=== PATIENT | female | born 1945 | race Caucasian/White ===

== ENCOUNTER 2024-02-03 18:24 | Emergency (ER) | payer OTHER, SELFPAY ==
[2024-02-03 18:25] VITALS: BP 200/94
--- NOTE | 2024-02-03 20:01 | ED.GENMED ---
History of Present Illness
General
Chief Complaint: DVT/Possible Blood Clot
Source: patient
Exam Limitations: none
Time Seen by Provider: 02/03/24 18:54
Nursing documentation reviewed up to this point in time: agreed with
Travel History
Have you had any contact with someone who has COVID-19?: No
Do you have any symptoms of coronavirus? Fever > 100 degrees, chills, cough, shortness of breath, sore throat, loss of taste or smell, muscle aches, or headache?: No
History of Present Illness
History of Present Illness:
78-year-old female with past medical history of COPD presenting to the emergency department today with concerns of a pinch like sensation to the right calf earlier today noticed a bruise she came to the ER to assess for DVT has mild pain to the area
was able to ambulate denies numbness weakness or additional concerns. No direct trauma to the area
Review of Systems
Review of Systems
Allergies reviewed?: Yes
All Other Systems: ROS reviewed and negative except as documented in HPI and ROS
Phy Exam
Physical Exam
Physical Exam:
GENERAL: Alert , in no apparent distress
EYE: pupils equal and reactive
NECK: Supple, no significant adenopathy.
ENT: o/p clr, mmm.
CARDIAC: Regular rate and rhythm .
LUNGS: Clear breath sounds bilaterally, no acute respiratory distress, no wheezes/rales/rhonchi
ABDOMEN: Soft, without focal tenderness, no r/g, no cvat
NEUROLOGICAL: Alert and oriented, no focal neuro deficits
SKIN: Warm and dry, skin intact.
MUSCULOSKELETAL: Roughly 5 cm diameter bruise to the right calf posteriorly mild tenderness to palpation nonpulsatile good range of motion and strength of the knee and ankle. Normal distal pulses no edema, well perfused.
PSYCH: Normal and appropriate interaction.
Course
Orders/Labs/Results
Orders:
Orders
02/03/24 18:55
Venous Doppler Lwr Ext Rt [US Periph Venous LOWER Ext RT] Urgent
Comment:
Reason For Exam: leg pain
Vital Signs
Initial and Last Documented VS:
Initial Vital Signs
Temp Pulse Resp BP Pulse Ox
98.3 F 89 18 200/94 94
02/03/24 18:25 02/03/24 18:25 02/03/24 18:25 02/03/24 18:25 02/03/24 18:25
Last Documented Vital Signs
Temp Pulse Resp BP Pulse Ox
98.3 F 89 18 200/94 94
02/03/24 18:25 02/03/24 18:25 02/03/24 18:25 02/03/24 18:25 02/03/24 18:25
MDM/Problems Addressed
MDM/Problems Addressed:
78-year-old female presenting to the emergency department today with concerns of discomfort to her calf after feeling a pinching sensation and noticing bruising. She otherwise is well-appearing no acute distress ultrasound did not show any clot no
emergent findings on exam other than a bruise advised for close outpatient follow-up return precautions given.
*Critical Care Note
Total Time (30-74mins, 75-104mins- exclusive of procedures): Not Applicable
ED Attending Note
-
Portions of this chart may have been created with voice recognition software.� Occasional wrong word or��sound alike� substitutions may have occurred due to the inherent limitations of voice recognition software.
Discharge Plan
Departure
Patient Disposition: Home (Routine Discharge)
Date of Disposition: 02/03/24
Time of Disposition: 20:03
Patient with high blood pressure during this ER visit?: Yes
Condition: Good
Covid-19: Not Applicable
Discharge Problem:
Contusion
Instructions: BLOOD PRESSURE, Contusion
Activity Restrictions/Additional Instructions:
You came to the emergency department today with concerns of a bruise. You are found to have a normal ultrasound here. Your blood pressure was. Please monitor this at home. Return to the emergency department for any worsening, new or concerning
symptoms.
Interventions
Interventions:
*ED COVID-19 Vaccine History Last Done: 02/03/24 18:25
Discharge Date and Time
Print Language: AZERI
== END 2024-02-03 20:16 | disposition home or self-care (01) ==
LOC: EMR 18:24
PROVIDERS: EMERGENCY PHYSICIAN Emergency Medicine; FAMILY PHYSICIAN Student in an Organized Health Care Education/Training Program
DX: S80.11XA Contusion of right lower leg, initial encounter (principal); X58.XXXA Exposure to other specified factors, initial encounter; J44.9 Chronic obstructive pulmonary disease, unspecified
CPT/HCPCS: 99284; 93971

== ENCOUNTER 2024-10-14 06:26 | Day surgery (SDC) | payer OTHER, SELFPAY ==
[2024-10-02 09:11] LABS: Hematocrit 39.8 % (37.0-47.0); Hemoglobin 12.9 g/dL (12.0-16.0); Mean Corp Hgb Conc. 32.4 g/dL (33.0-37.0); Mean Corpuscular Hgb 30.6 pg (27.0-31.0); Mean Corpuscular Volume 94.5 fL (81.0-99.0); Mean Platelet Volume 10.8 fL (7.4-10.4); Platelet Count 244 10^3/uL (130-400); Red Blood Cell Count 4.21 10^6/uL (4.20-5.40); Red Cell Dist. Width 13.2 % (11.5-14.5)
[2024-10-02 09:44] LABS: Blood Urea Nitrogen 20 mg/dl (7-17); Calcium 9.3 mg/dl (8.4-10.2); Carbon Dioxide 25 mmol/L (22-30); Chloride 106 mmol/L (98-107); Glucose 88 mg/dl (70-99); Potassium 4.4 mmol/L (3.5-5.1); Sodium 142 mmol/L (135-145); eGFR 57.31
--- NOTE | 2024-10-02 14:12 | PTCARENOTE ---
Patients 10/02 ECG abnormal- reviewed by Dr. Millard- no additional interventions indicated
[2024-10-02 14:22] VITALS: BMI 20.4
[2024-10-14] VITALS (9 sets, daily range): BP systolic 127–155; BP diastolic 54–82; BMI 20.4
--- NOTE | 2024-10-14 08:19 | HP.FOC2 ---
Focused History & Physical
Chief Complaint
HPI:
Chief Complaint: Right inguinal hernia
HPI / Indication for Planned Procedure: Patient is a 79-year-old female with a past abdominal surgical history only notable for open left inguinal herniorrhaphy in 1997 from which she has recovered well. She has been following swelling in the right
inguinal region. It is present upon standing or with exertional activities with occasional discomfort. Outpatient evaluation confirmed the presence of a readily apparent and reducible right inguinal hernia. Patient presents today for scheduled
operative correction
Relevant Past Medical History: COPD or Pulmonary Disease, Hypertension and Other (Giant cell arteritis, previous history EtOH)
Relevant Social History: Negative
Relevant Family History: Negative
Relevant Past Surgical History: Positive for (Cataracts, left inguinal hernia repair)
Review of Systems
Review of Pertinent Systems: All Systems Negative
Medication
See Medication form for detailed medications: Yes
Medication List (including Herbals & OTC):
albuterol sulfate 90 mcg/actuation aerosol inhaler 2 puff inhalation 6XD PRN COPD 10/07/24
budesonide-formoterol HFA 160 mcg-4.5 mcg/actuation aerosol inhaler (Symbicort) 2 puff inhalation DAILY 10/07/24
cholecalciferol (vitamin D3) 25 mcg (1,000 unit) tablet (Vitamin D3) 25 mcg PO DAILY 10/07/24
lisinopril 10 mg tablet 10 mg PO DAILY 10/07/24
tiotropium bromide 2.5 mcg/actuation mist for inhalation (Spiriva Respimat) 2 puff inhalation DAILY 10/07/24
Medications Reviewed: Yes
Allergies and Reactions
Patient has Allergies: No
Noted Allergies and Reactions:
Allergy/AdvReac Type Severity Reaction Status Date / Time
No Known Allergies Allergy Unverified 10/07/24 09:05
Pertinent Physical Exam
All Other Systems: Negative
Head/Neck: Normal
Lungs: Normal
Heart: Normal
Abdomen: Other (Reducible RIH)
Extremities: Normal
Neurological: Normal
Diagnosis / Assessment
79-year-old female presenting for operative correction symptomatic right inguinal hernia
Plan / Procedure
Laparoscopic TEP repair right inguinal hernia with mesh
Anesthesia/Sedation to be done by Anesthesia Provider: Yes
--- NOTE | 2024-10-14 08:22 | W.SUR.PREOP ---
Pre-Operative Surgical Note
-
I have examined this patient prior to the performance of the scheduled procedure.
The patient's condition is unchanged from the time of the current History and
Physical and the patient is able to undergo the scheduled procedure.
[2024-10-14] MEDS: TYLENOL 1000 MG PO (08:29)
[2024-10-14] MEDS: NORMOSOL-R/PLASMALYTE-A 1000 IV ×2 (08:37→11:37)
--- NOTE | 2024-10-14 09:43 | W.IMMPOSTOP ---
Addendum entered and electronically signed by Kayode Mario MD 10/14/24 09:51:
#[id number]
Original Note:
Surgical Immed Post Op Note
-
Primary Surgeon: Kayode Mario MD
Assisting Surgeon: Bolivar Mullen MD PGY1
Pre-op Diagnosis: Right inguinal hernia
Post-op Diagnosis: Right inguinal hernia; indirect and direct/femoral component
Procedure Performed: Laparoscopic TEP repair right inguinal hernia mesh; 3D max large mid weight
Anesthesia Type: GETA +0.25% Marcaine with epi
Specimen / Cultures: None
Estimated Blood Loss: 4 mL
Complications: None immediate
Operative Findings: Right inguinal hernia, indirect and direct/femoral. 3D max large mid weight mesh repair secured to Jordy's ligament with 2 tacks. No peritoneal entry with dissection.
[2024-10-14] MEDS: ZOFRAN 4 MG IV (11:00)
[2024-10-14] MEDS: COMPAZINE 5 MG IV (11:54)
== END 2024-10-14 13:32 | disposition home or self-care (01) ==
LOC: SDS 06:26
PROVIDERS: ATTENDING PHYSICIAN Surgery; FAMILY PHYSICIAN Student in an Organized Health Care Education/Training Program
DX: K40.90 Unilateral inguinal hernia, without obstruction or gangrene, not specified as recurrent (principal)
CPT/HCPCS: 49650; 36415; 80048; 85027; 93005; C1781

== ENCOUNTER → 2024-12-27 09:03 | Outpatient (REF) | payer OTHER, SELFPAY | LOC: HWRAD 09:03 | PROVIDERS: ATTENDING PHYSICIAN Student in an Organized Health Care Education/Training Program | DX: J44.9 Chronic obstructive pulmonary disease, unspecified (principal); Z87.891 Personal history of nicotine dependence; Z12.2 Encounter for screening for malignant neoplasm of respiratory organs | CPT/HCPCS: 71250 ==

== ENCOUNTER 2025-03-16 14:05 | Inpatient (IN) | payer OTHER, SELFPAY ==
[2025-03-16] VITALS (8 sets, daily range): BP systolic 130–218; BP diastolic 70–107; PULSE 123; BMI 22.5
[2025-03-16 09:57] LABS: Hematocrit 40.4 % (37.0-47.0); Hemoglobin 13.3 g/dL (12.0-16.0); Mean Corp Hgb Conc. 32.9 g/dL (33.0-37.0); Mean Corpuscular Volume 94.0 fL (81.0-99.0); Nucleated Red Blood Cells % 0 %; Platelet Count 203 10^3/uL (130-400); Red Cell Dist. Width 12.8 % (11.5-14.5)
--- NOTE | 2025-03-16 09:57 | ED.GENMED ---
History of Present Illness
General
Chief Complaint: Blood Pressure Problem
Source: patient
Exam Limitations: none
Time Seen by Provider: 03/16/25 09:53
Nursing documentation reviewed up to this point in time: agreed with
History of Present Illness
History of Present Illness:
79-year-old female w h/o COPD, HTN who presents with a chief complaint of increasingly blurry vision that began yesterday, with a noticeable worsening this morning. The patient describes her arms as feeling 'tingly' at times. She reported nausea
that was more pronounced earlier but has not resulted in vomiting. The nausea tends to intensify when she is up and moving around. She experiences a mild dizziness that she describes as a light-headed or foggy sensation rather than room-spinning
vertigo, which she has had in the past. The symptoms worsen with positional changes, such as walking or standing, and she attributes the sensation to feeling as though her equilibrium is off. She denies any recent travel, recent illnesses, or
contact with sick individuals. She wears glasses specifically for reading, with a prescription of 2.50. The patient denies headaches, recent head trauma, chest pain, respiratory difficulties, abdominal pain, weakness in her extremities, and changes
in her appetite. There has been no introduction of new medications recently, and her chronic obstructive pulmonary disease causes some shortness of breath with exertion but has not changed. She is not experiencing urinary or bowel issues.
Past History
Past History
ED Past Medical History: COPD and HTN
Social History
Tobacco: Former smoker
Alcohol: Occasional
Personal: Single
Living: with family (The patient lives with her daughter, son-in-law, and their three children.)
Review of Systems
Review of Systems
Allergies reviewed?: Yes
All Other Systems: ROS reviewed and negative except as documented in HPI and ROS
Constitutional: Denies fever or fatigue
EENT: Reports other (mild blurry vision both eyes past 18 hours)
Respiratory: Denies trouble breathing
Cardiac: Denies chest pain
ABD/GI: Reports nausea (earlier, none now); Denies abdominal pain, vomiting, diarrhea or anorexia
: Denies dysuria, frequency, incontinence or difficulty voiding
Musculoskeletal: Reports no symptoms
Skin: Reports no symptoms
Neurological: Reports other (feels 'equilibrium is off' also mild pins and needles all 4 extremities); Denies dizzy, headache, weakness or numbness
Phy Exam
Physical Exam
Physical Exam:
GENERAL: No acute distress. A&Ox3.
CONSTITUTIONAL: Afebrile.
EYES: clear, conjunctivae normal, PERRL
ENMT: moist mucus membranes, Pharynx nl, TMs normal
RESPIRATORY: Regular respirations, nonlabored, lungs clear.
CARDIOVASCULAR: Regular rate and rhythm, no murmurs, no rubs.
GI: Soft, nontender, normal BS
MUSCULOSKELETAL: Moves with ease. Well perfused.
SKIN: Warm, dry, pink
PSYCH: Normal mood and affect. Well kept, interactive and appropriate
NEUROLOGIC: Awake, alert and oriented. Speech clear. Strength equal throughout. Cranial nerves II through XII intact. Nehvfa-ob-voat intact. No focal neurological deficits
Course
Orders/Labs/Results
Orders:
Orders
03/16/25 09:46
Electrocardiogram (*1) Urgent
Reason for Study: Chest Pain
EKG- Treatment ONCE
03/16/25 09:48
Complete Blood Count/With Diff Routine
Comprehensive Metabolic Panel Urgent
Prothrombin Time Urgent
Troponin I Urgent
03/16/25 10:08
CT Head W/o Iv Contrast Urgent
Comment:
Reason For Exam: disequilibrium, tingling extremities blurry vision
03/16/25 10:56
Physical Therapy Consult [Pt Eval And Treat] Urgent
Treatment: Vestibular evaluation
Activity Level: As Tolerated
03/16/25 13:10
HydrALAZINE [Apresoline] 10 mg IV NOW STA
03/16/25 13:42
Admit/Transfer Patient As Directed
Co-Sign Provider:
Level of Care: Inpatient admission
Assign to:: Telemetry
Physician / Group: seamus
Diagnosis: Acute blurry vision Dysequilibrium, asociated Nausea HTN urgency
Reason for Telemetry: CVA/TIA
Date to Stop Telemetry: 03/19/25
Time to Stop Telemetry: 11:00
Reason for Hospitalization: Acute blurry vision
Dysequilibrium, asociated Nausea
HTN urgency
Expected length of stay greater than two midnights?: Yes
ELOS- Estimated Length of Stay in days: 2
I certify the patient meets the requirements for IP care: Yes
03/16/25 13:44
Code Status As Directed
Resuscitation Status: Full Code
03/16/25 15:06
Acetaminophen [Tylenol/Feverall] 650 mg RECTAL Q4HPRN PRN
Acetaminophen [Tylenol] 650 mg PO Q4HPRN PRN
Albuterol [ProAIR HFA INHALER] 2 puff INH R Q6HPRN PRN sob
HydrALAZINE [Apresoline] 10 mg IV Q4HPRN PRN
03/16/25 15:06
Case Management Consult ONCE
Case Management Consult: Discharge Planning
Comment: stroke/tia
DIETARY IP CONSULT Routine
Reason for Consult: stroke/TIA
NEUROLOGY CONSULT Urgent
Consulting Provider: Akash Cardona
Was physician already notified: Yes
Reason for consult: Acute blurry vision Dysequilibrium, asociated Nausea HTN urgency
Heel Scourer Urgent
Glycohemoglobin (HgbA1c) Routine
MR Brain Without Contrast Routine
Comment:
Reason For Exam: stroke/TIA
Recent pill cam endoscopy?: No
Activity As Directed
Activity Level: With Assistance
NIH Stroke Scale As Directed
Directions: Per protocol
Comment: every shift and with any change in condition or mental status
Neurological Checks As Directed
Frequency: q4h
Additional Instructions:: q4h x 24h upon admission to the floor, then qshift & with any change in condition
and mental status
Patient Education As Directed
Type: Stroke education packet
Comment: provide to patient and family
Pneumatic Compression Sleeves As Directed
Type: Knee high
Vital Signs As Directed
Frequency: Per unit guidelines
Ot Eval And Treat Routine
Pt Eval And Treat Routine
Activity Level: With Assistance
Speech Therapy Eval & Treat Routine
DX Deep Vein Thrombosis Video Routine
03/17/25 06:00
Basic Metabolic Panel IN AM
Cardiovascular Evaluation IN AM
03/17/25 08:00
Aspirin Chewable [Low Strength Aspirin] 81 mg PO DAILY
Budesonide/Formoterol 160/4.5 [Symbicort 160/4.5 Mcg Inhaler] 2 puff INH R DAILY
Lisinopril [Zestril] 10 mg PO DAILY
Tiotropium [place] 2.5 Mcg [Spiriva Respimat 2.5 Mcg] 2 puff INH R DAILY
03/19/25 11:00
DC Protocol for Telemetry ONCE
Abnormal Lab Results
03/16/25
09:48
MCHC 32.9 L g/dL
(33.0-37.0)
MPV 10.6 H fL
(7.4-10.4)
Absolute Lymphs (auto) 1.1 L 10^3/uL
(1.2-3.4)
Lymphocytes % 17.3 L %
(20.5-51.1)
Chloride 112 H mmol/L
(98-107)
BUN 22 H mg/dl
(7-17)
03/16/25 09:48
03/16/25 09:48
Vital Signs
Initial and Last Documented VS:
Initial Vital Signs
Temp Pulse BP Pulse Ox
97.9 F 75 199/104 96
03/16/25 09:18 03/16/25 09:18 03/16/25 09:18 03/16/25 09:18
Last Documented Vital Signs
Temp Pulse Resp BP Pulse Ox
98.1 F 91 12 143/76 95
03/16/25 15:00 03/16/25 15:00 03/16/25 15:00 03/16/25 15:00 03/16/25 15:00
MDM/Problems Addressed
Differential Diagnosis Includes:
TIA, BPPV, hypertensive urgency, labyrinthitis, vestibular neuritis
MDM/Problems Addressed:
79-year-old female w h/o COPD, HTN who presents with a chief complaint of increasingly blurry vision that began yesterday, with a noticeable worsening this morning. The patient describes her arms as feeling 'tingly' at times. She reported nausea
that was more pronounced earlier but has not resulted in vomiting. The nausea tends to intensify when she is up and moving around. She experiences a mild dizziness that she describes as a light-headed or foggy sensation rather than room-spinning
vertigo, which she has had in the past. The symptoms worsen with positional changes, such as walking or standing, and she attributes the sensation to feeling as though her equilibrium is off. She denies any recent travel, recent illnesses, or
contact with sick individuals. She wears glasses specifically for reading, with a prescription of 2.50. The patient denies headaches, recent head trauma, chest pain, respiratory difficulties, abdominal pain, weakness in her extremities, and changes
in her appetite. There has been no introduction of new medications recently, and her chronic obstructive pulmonary disease causes some shortness of breath with exertion but has not changed. She is not experiencing urinary or bowel issues.
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
Afebrile, NAD
No focal neuro deficits
EKG: NSR
BP has improved at initial exam: 166/70
Problem List:
Acute:
- Blurry vision
- Dysequilibrium
- Nausea
Chronic:
- Chronic obstructive pulmonary disease
CBC: unremarkable.
CMP: No clinically significant abnormality
Troponin: WNL
12:[address] radiology report read:
IMPRESSION:
No acute intracranial abnormality noted.
Mild mucosal thickening of the paranasal sinuses with may represent sinusitis.
P/T in for vestibular evaluation.
PT workup negative for BPPV, etc.
1:15 PM:
BP 205/81
Patient still with mild Disequilibrium and mild blurry vision
Plan: Admit for hypertensive urgency
Hydralazine IV ordered
Plan: Admit: Hypertensive urgency
Hospitalist notified of admission
*Pulse Oximetry
SaO2: 96
Oxygen Mode of Delivery: Room air
Patient hypoxic: no
*EKG
EKG Intrepretation Date: 03/16/25
Interpretation: normal
Heart Rate: 79
Rate: normal
Rhythm: sinus
[place]: normal axis
Interval: normal interval
QRS Pattern: normal QRS
Ischemia: no ischemia
*Critical Care Note
Total Time (30-74mins, 75-104mins- exclusive of procedures): Not Applicable
ED Attending Note
-
Portions of this chart may have been created with voice recognition software.� Occasional wrong word or��sound alike� substitutions may have occurred due to the inherent limitations of voice recognition software.
Discharge Plan
Departure
Patient Disposition: Admit
Date of Disposition: 03/16/25
Time of Disposition: 13:12
Presentation/result/management discussed w/ accepting MD/DO: Hospitalist
Condition: Fair
Discharge Problem:
Hypertensive urgency
Interventions
Interventions:
*Risk Screen - Suicide Last Done: 03/16/25 09:51
*General Assessment Last Done: 03/16/25 09:51
*ED- Fall Risk Assessment Last Done: 03/16/25 09:51
*ED COVID-19 Vaccine History Last Done: 03/16/25 15:33
*Nursing Disposition Last Done: 03/16/25 15:09
ED- Cardiac Assessment Last Done: 03/16/25 09:51
ED- Neurological Assessment Last Done: 03/16/25 09:51
ED- Pulmonary Assessment Last Done: 03/16/25 09:51
Discharge Date and Time
Discharge Date/Time: 03/16/25 15:10
[2025-03-16 10:07] LABS: INR 0.92; PT 12.6 Sec (11.4-14.6)
[2025-03-16 10:11] LABS: ALT (SGPT) 18 U/L (0-35); AST (SGOT) 20 U/L (14-36); Albumin 4.5 g/dl (3.5-5.0); Alkaline Phosphatase 91 U/L (38-126); Blood Urea Nitrogen 22 mg/dl (7-17); Calcium 9.6 mg/dl (8.4-10.2); Carbon Dioxide 24 mmol/L (22-30); Chloride 112 mmol/L (98-107); Estimated Creatinine Clearance 34 ml/min; Glucose 96 mg/dl (70-99); Potassium 4.8 mmol/L (3.5-5.1); Sodium 143 mmol/L (135-145); Total Protein 7.3 g/dl (6.3-8.2); eGFR 57.31
[2025-03-16 10:21] LABS: Troponin I < 0.012 ng/ml
[2025-03-16] MEDS: APRESOLINE 10 MG IV (13:23)
--- NOTE | 2025-03-16 13:26 | HPS.HSE ---
Family Physician
-
Family Physician: Aayush Hinds, DO
Chief Complaint
-
Acute blurry vision
Dysequilibrium, asociated Nausea
History of Present Illness
HPI
79F HX COPD, HTN seen at ER:
- increasingly blurry vision that began yesterday, with a noticeable worsening this morning.
- wears glasses specifically for reading, with a prescription of 2.50.
- arms as feeling 'tingly' at times.
- reported nausea that was more pronounced earlier but has not resulted in vomiting. The nausea tends to intensify when she is up and moving around.
- experiences a mild dizziness that she describes as a light-headed or foggy sensation rather than room-spinning vertigo, which she has had in the past.
- The symptoms worsen with positional changes, such as walking or standing, and she attributes the sensation to feeling as though her equilibrium is off.
- denies any recent travel, recent illnesses, or contact with sick individuals.
- denies headaches, recent head trauma, chest pain, respiratory difficulties
- denies weakness in her extremities
- no introduction of new medications recently,
Medical History
Past Medical History
Past Medical History: Reports COPD and HTN
Past Surgical History: Reports Other
Social History
Tobacco: Non-smoker
Alcohol: None
Family History
Family History: Not pertinent
Allergies / Home Medications
Allergies reflects when Allergies were last updated in [employer].
Home Medications with original date entered in [employer]
Allergy/Medication List:
Allergies
Allergy/AdvReac Type Severity Reaction Status Date / Time
No Known Allergies Allergy Verified 03/16/25 09:18
Home Medications
albuterol sulfate 90 mcg/actuation aerosol inhaler 2 puff inhalation R Q6HPRN PRN sob 10/07/24
budesonide-formoterol HFA 160 mcg-4.5 mcg/actuation aerosol inhaler (Symbicort) 2 puff inhalation R DAILY 10/07/24
cholecalciferol (vitamin D3) 25 mcg (1,000 unit) tablet (Vitamin D3) 25 mcg PO DAILY 10/07/24
tiotropium bromide 2.5 mcg/actuation mist for inhalation (Spiriva Respimat) 2 puff inhalation R DAILY 10/07/24
lisinopril 20 mg tablet 10 mg PO DAILY 03/16/25
naproxen sodium 220 mg tablet (Aleve) 440 mg PO DAILYPRN PRN mild pain 03/16/25
Review of Systems
-
Constitutional: Reports No Symptoms
EENT: Reports No Symptoms
Respiratory: Reports No Symptoms
Cardiac: Reports No Symptoms
Abdomen/GI: Reports No Symptoms
: Reports No Symptoms
Musculoskeletal: Reports No Symptoms
Skin: Reports No Symptoms
Neurological: Reports Dizzy
Endocrine: Reports No Symptoms
Hematologic/Lymphatic: Reports No Symptoms
Psych: Reports No Symptoms
Physical Exam
Vital Signs
Vital Signs
Temp Pulse Resp BP Pulse Ox
97.9 F 77 14 166/70 96
03/16/25 09:22 03/16/25 10:00 03/16/25 10:00 03/16/25 10:00 03/16/25 10:00
Physical Exam
General: Well Developed, Well Nourished and No Apparent Distress
HEENT: NormoCephalic, Moist mucous membranes and Atraumatic
Respiratory: Clear
Cardiac: S1/S2 and Regular Rhythm; No Murmur or Rub
GI: Soft, Non Tender, Non Distended and Normal Bowel Sounds; No Organomegaly
Rectal: Deferred by Provider
Musculoskeletal: No Clubbing, No Cyanosis and No Edema
Skin: No Rash
Neuro: AO x 3, No Motor Deficits and Nonfocal/grossly intact
Laboratory Results
-
03/16/25 09:48
03/16/25 09:48
Laboratory Results
PT 12.6 Sec (11.4-14.6) 03/16/25 09:48
INR 0.92 03/16/25 09:48
Total Bilirubin 0.5 mg/dl (0.2-1.3) 03/16/25 09:48
AST 20 U/L (14-36) 03/16/25 09:48
ALT 18 U/L (0-35) 03/16/25 09:48
Alkaline Phosphatase 91 U/L (38-126) 03/16/25 09:48
Troponin I < 0.012 ng/ml 03/16/25 09:48
Data Reviewed
-
CT Scan: Report Reviewed by me
Lab Data: Labs Reviewed by me
Impression/Plan
-
Selected Entries
03/16/25
09:18 03/16/25
09:22 03/16/25
09:44
Temp 97.9 F
Pulse 75
Blood pressure 199/104 218/107 156/80
SaO2 96
Oxygen Mode of Delivery Room air
HCT
- No acute intracranial abnormality noted.
- Mild mucosal thickening of the paranasal sinuses with may represent sinusitis.
- NO PRIOR hospitalist admission:
ASSESSMENT & PLAN
Pending Rx reconciliation
Acute blurry vision
Dysequilibrium, associated Nausea
HTN urgency - presumed symptomatic: NEG HCT for acute pathology
labile BP control
Bn HTN
- fall precaution
- IV Hydralazine PRN for SBP > 165, DBP > 110
- empiric baby ASA daily
- cont. PO Lisinopril
- Observe BP
- Neuro consulted - defer for further imaging or what not
CKD3a - baseline Cr 1.0, eGFR 57
- stable
- observe Cr
- cont ACEI
HX COPD
- Pending Rx reconciliation
DVT Px: SCD
Full code
IP TLM
--- NOTE | 2025-03-16 17:14 | CON.NEURO ---
Neuro Assessment/Plan
Assessment
head CT imgs reviewed, mild atrophy and microvascular changes
79 year old woman with hypertensive urgency much improved.
Exam subtle right skew deviation, loss of dominance probably represents TIA if they are gone tomorrow; or could represent stroke of unknown chronicity.
ASA 81, 21 days of Plavix, Lipitor 40 for now
check MRI brain, mra head/neck
Consultation
Order
Date of Consultation: 03/16/25
Requesting Provider:
Reason for Consult:
Subjective/Objective
Subjective Data
Date of Service: March 16, 2025
from h&p:
79F HX COPD, HTN seen at ER:
- increasingly blurry vision that began yesterday, with a noticeable worsening this morning.
- wears glasses specifically for reading, with a prescription of 2.50.
- arms as feeling 'tingly' at times.
- reported nausea that was more pronounced earlier but has not resulted in vomiting. The nausea tends to intensify when she is up and moving around.
- experiences a mild dizziness that she describes as a light-headed or foggy sensation rather than room-spinning vertigo, which she has had in the past.
- The symptoms worsen with positional changes, such as walking or standing, and she attributes the sensation to feeling as though her equilibrium is off.
- denies any recent travel, recent illnesses, or contact with sick individuals.
- denies headaches, recent head trauma, chest pain, respiratory difficulties
- denies weakness in her extremities
- no introduction of new medications recently,
her blood pressure has come down, and her dizziness and blurry vision are much improved but not resolved. no h/o stroke.
Objective Data
Vital Signs
Temp Pulse Resp BP Pulse Ox
36.7 C 91 12 143/76 95
03/16/25 15:00 03/16/25 15:00 03/16/25 15:00 03/16/25 15:00 03/16/25 15:00
Lab Results
03/16/25 09:48
03/16/25 09:48
PT 12.6 Sec (11.4-14.6) 03/16/25 09:48
INR 0.92 03/16/25 09:48
Sodium 143 mmol/L (135-145) 03/16/25 09:48
Potassium 4.8 mmol/L (3.5-5.1) 03/16/25 09:48
BUN 22 mg/dl (7-17) H 03/16/25 09:48
Glucose 96 mg/dl (70-99) 03/16/25 09:48
Calcium 9.6 mg/dl (8.4-10.2) 03/16/25 09:48
Patient Allergies
No Known Allergies Allergy (Verified 03/16/25 09:18)
Physical Exam
-
AAOx3, speech clear
VFF, EOMI, a few beats non sustained nystagmus subtle skew deviation OD with cover/uncover
loss of dominance (right arm fixation)
sensation intact to touch/pin
Medications
-
Active Medications
Generic Name Dose Route Start Last Admin
Trade Name Freq PRN Reason Stop Dose Admin
Acetaminophen 650 mg 03/16/25 15:06
Acetaminophen 650 Mg Rectal Suppository RECTAL 04/13/25 15:05
Q4HPRN PRN
DAUGHERTY, mild pain, or temp >100.4F
Acetaminophen 650 mg 03/16/25 15:06
Acetaminophen 325 Mg Tablet PO 04/13/25 15:05
Q4HPRN PRN
DAUGHERTY, mild pain, or temp >100.4F
Albuterol 2 puff 03/16/25 15:06
Albuterol Hfa [90 Mcg/Dose] Inhaler INH
R Q6HPRN PRN
sob
Protocol
Aspirin 81 mg 03/17/25 08:00
Aspirin 81 Mg Chewable Tablet PO 04/14/25 07:59
DAILY TR
Budesonide/Formoterol Fumarate 2 puff 03/17/25 08:00
Symbicort Inhaler 160/4.5 INH 04/14/25 07:59
R DAILY TR
Protocol
Hydralazine HCl 10 mg 03/16/25 15:06
Hydralazine 20 Mg/Ml Vial IV 04/13/25 15:05
Q4HPRN PRN
SBP > 165, DBP > 110
Lisinopril 10 mg 03/17/25 08:00
Lisinopril 10 Mg Tablet PO 04/14/25 07:59
DAILY TR
Sodium Chloride 0 flush 03/16/25 16:00
Sodium Chloride 0.9% (Flush) Syringe IV 04/13/25 15:59
PER PROTOCOL TR
Tiotropium [place] 2 puff 03/17/25 08:00
Tiotropium (Spiriva Respimat) 2.5 Mcg Inhaler INH 04/14/25 07:59
R DAILY TR
Protocol
Home Medications
�Medication �Instructions �Recorded
albuterol sulfate 90 mcg/actuation 2 puff inhalation R Q6HPRN PRN sob 10/07/24
aerosol inhaler
budesonide-formoterol HFA 160 2 puff inhalation R DAILY 10/07/24
mcg-4.5 mcg/actuation aerosol
inhaler (Symbicort)
cholecalciferol (vitamin D3) 25 25 mcg PO DAILY 10/07/24
mcg (1,000 unit) tablet (Vitamin
D3)
tiotropium bromide 2.5 2 puff inhalation R DAILY 10/07/24
mcg/actuation mist for inhalation
(Spiriva Respimat)
lisinopril 20 mg tablet 10 mg PO DAILY 03/16/25
naproxen sodium 220 mg tablet 440 mg PO DAILYPRN PRN mild pain 03/16/25
(Tabitha)
[2025-03-16] MEDS: PLAVIX 300 MG PO (18:03)
[2025-03-16] MEDS: ASPIRIN ENTERIC COATED 325 MG PO (18:03)
[2025-03-16] MEDS: TYLENOL 650 MG PO (21:57)
[2025-03-17] VITALS (7 sets, daily range): BP systolic 113–151; BP diastolic 66–80; PULSE 86–89; O2SAT 94–97
[2025-03-17 07:20] LABS: Blood Urea Nitrogen 21 mg/dl (7-17); Calcium 9.3 mg/dl (8.4-10.2); Carbon Dioxide 22 mmol/L (22-30); Chloride 112 mmol/L (98-107); Estimated Creatinine Clearance 31 ml/min; Glucose 87 mg/dl (70-99); HDL Cholesterol 66 mg/dl; LDL Cholesterol, Calculated 109 mg/dl; Potassium 4.6 mmol/L (3.5-5.1); Sodium 141 mmol/L (135-145); Very Low Density Lipoprotein 14 mg/dl (0-30); eGFR 51.11
[2025-03-17] MEDS: SYMBICORT 160/4.5 MCG INHALER 2 PUFF INH (07:27)
[2025-03-17] MEDS: SPIRIVA RESPIMAT 2.5 MCG 2 PUFF INH (07:27)
[2025-03-17] MEDS: LOW STRENGTH ASPIRIN PO (08:55)
[2025-03-17] MEDS: PLAVIX 75 MG PO (08:56)
[2025-03-17] MEDS: ASPIR LOW (ENTERIC COATED) 81 MG PO (08:56)
--- NOTE | 2025-03-17 08:58 | W.PN.HOSP.TC ---
Today's Communication/Plan
-
f/w neurology recommendations
MRI brain
control BP
c/w aspirin and Plavix
Echo of heart
Assessment / Plan
Assessment / Plan
Physical Exam
General: Well Developed, Well Nourished, No Apparent Distress and Morbidly Obese
HEENT: Normocephalic, Moist mucous membranes and Atraumatic
Respiratory: Clear
Cardiac: S1/S2, + murmur
GI: Soft, Non-Tender, Non-Distended and Normal Bowel Sounds, obese.
Rectal: NO bleeding.
Musculoskeletal: No Clubbing, No Cyanosis
Neuro: AAOX 3, Followed commands, speech is fluent, no pronator drift, no tremor, Nonfocal/grossly intact
Psych: Calm
Acute blurry vision
Dysequilibrium, associated Nausea
HTN urgency - presumed symptomatic: NEG HCT for acute pathology
She reports blurred vision but no numbness or focal deficit. Nausea upon trying to read
- fall precaution
- IV Hydralazine PRN for SBP > 165, DBP > 110
- empiric baby ASA & Plavix daily
- cont. PO Lisinopril
- Observe BP
- Neuro consulted
# Heart murmur. Will order echocardiogram
CKD3a - baseline Cr 1.0, eGFR 57
- stable
- observe Cr
- cont ACEI
HX COPD
c/w inhalers.
No wheezes on exam
DVT Px: SCD
Full code
Total time spent to see the patient, examine the patient, review data and lab result, discuss treatment plan with patient, nursing staff around 55 minutes
Anticipated Discharge: 24 - 48 hours
Subjective/Interval History
-
Date of Service: March 17, 2025
Objective Data
-
Labs:
Laboratory Results
03/17/25
06:14
Sodium 141
Potassium 4.6
Chloride 112 H
Carbon Dioxide 22
BUN 21 H
Creatinine 1.1 H
Glucose 87
Calcium 9.3
Vital Signs:
Vital Signs
Temp Pulse Resp BP Pulse Ox
97.4 F 71 20 140/68 94
03/17/25 02:50 03/17/25 02:50 03/17/25 02:50 03/17/25 02:50 03/17/25 02:50
I&O
03/16/25 03/17/25 03/18/25
06:59 06:59 06:59
Intake Total 1440 / 1440
Balance 1440 / 1440
--- NOTE | 2025-03-17 09:05 | PTCARENOTE ---
Patient reports taking her own medications from home this morninmg PO lisinopril, 25mcg PO vitamin d3, and spiriva and symbicort inhalers. This RN educated patient that hospital staff will be providing her medications and she should not be
taking her medications on her own, and they should be brought home if possible. MD aware. Plavix and aspirin given as ordered.
--- NOTE | 2025-03-17 09:40 | PTOTSP ---
Dysphagia Evaluation
No signs of oral/pharyngeal dysphagia. No signs of dysarthria, verbal expressive aphasia or auditory receptive aphasia in conversation. Will complete formal testing and cognitive linguistic testing pending results of MRI of Brain.
Recommend:
1. IDDSI 7 Regular, Thin
2. Medications as best tolerated
3. General aspiration and reflux precautions
4. Formal assessment of language and cognition pending results of MRI of Brain
[2025-03-17 10:19] LABS: Glycohemoglobin (HgbA1c) 5.7 % (4.0-5.6)
[2025-03-17] MEDS: NON-FORMULARY ITEM INH ×2 (11:14)
--- NOTE | 2025-03-17 13:11 | W.PN.NEURO.1 ---
Today's Communication / Plan
-
Outpatient ophthalmologic evaluation
Presumed spontaneous improvement over time
Due to prolonged symptoms, continue with plan for patient to utilize aspirin and clopidogrel simultaneously, then discontinue clopidogrel after 21 days
Would consider discontinuance of aspirin in 6 months if patient is asymptomatic and there is no recurrence of events (September 2025)
Neuro Assessment/Plan
Assessment
head CT imgs, mild atrophy and microvascular changes
79 year old woman presenting with hypertensive encephalopathy
Acute bilateral optic dysfunction without findings by examination and being unchanged by closure of a single eye suggests that the receptive organ, the brain, may not be processing images normally. Alternatively, the possibility of retinal ischemic
injury bilaterally in the eyes cannot be eliminated by limited examination currently
Plan
Outpatient ophthalmologic evaluation
Presumed spontaneous improvement over time
Due to prolonged symptoms, continue with plan for patient to utilize aspirin and clopidogrel simultaneously, then discontinue clopidogrel after 21 days
Would consider discontinuance of aspirin in 6 months if patient is asymptomatic and there is no recurrence of events (September 2025)
We will follow as outpatient
Subjective/Objective
Subjective Data
Date of Service: March 17, 2025
No change to vision. Blurred in both eyes. No diplopia.
Objective Data
Vital Signs
Temp Pulse Resp BP Pulse Ox
36.7 C 80 18 151/77 95
03/17/25 07:00 03/17/25 07:00 03/17/25 07:00 03/17/25 07:00 03/17/25 08:00
Lab Results
03/16/25 09:48
03/17/25 06:14
PT 12.6 Sec (11.4-14.6) 03/16/25 09:48
INR 0.92 03/16/25 09:48
Sodium 141 mmol/L (135-145) 03/17/25 06:14
Potassium 4.6 mmol/L (3.5-5.1) 03/17/25 06:14
BUN 21 mg/dl (7-17) H 03/17/25 06:14
Glucose 87 mg/dl (70-99) 03/17/25 06:14
Calcium 9.3 mg/dl (8.4-10.2) 03/17/25 06:14
LDL Cholesterol, Calc 109 mg/dl 03/17/25 06:14
Patient Allergies
No Known Allergies Allergy (Verified 03/16/25 09:18)
Review of Systems
-
History Source: Patient and Family
All other systems: Reviewed and negative
EENT: Blurry Vision; Negative Tinnitis or Swallowing Difficulty
Respiratory: Negative Trouble Breathing
Cardiac: Negative Chest Pain
Musculoskeletal: Negative Neck Pain
Neuro: Negative Dizzy or Headache
Physical Exam
-
General: No Apparent Distress and Appears Stated Age
Eyes: Round OU, [place] Conjunctivae and No Ptosis
HEENT: Anicteric and Moist Mucous Membranes
Neck: Full Range of Motion
Respiratory: No Dyspnea
Cardiac: No JVD
GI: Non-distended
Skin: Unremarkable
Extremities: No Clubbing, No Cyanosis and No Edema
Psych: Intact Judgement/Insight
Extended Neurological Exam
Mood & Affect: Mood Unremarkable and Affect Unremarkable
Attention Span & Concentration: Awake, Alert, Interactive and No Difficulty with 2 Step Request
Memory: Unremarkable
Tremor: Hand Tremor Absent and Head Tremor Absent
Speech: Quality Unremarkable and Quantity Unremarkable
Cranial Nerve II: Left Eye: Pupillary Size Unremarkable and Visual Garibay Intact
Cranial Nerve II: Right Eye: Pupillary Size Unremarkable and Visual Garibay Intact
Cranial Nerves III, IV, : Extraocular Movement: Extraocular Movement Full in all Directions
Cranial Nerve VII: Facial Symmetry: Normal Facial Symmetry
Cranial Nerve VIII: Hearing: Unremarkable Hearing to Normal Conversational Volume
Cranial Nerve XI: Shoulder Shrug: Unremarkable
Muscle Strength, Overall: Full in Upper Extremities
Muscle Bulk & Tone: Bulk Unremarkable and Tone Unremarkable
Pronator Drift: No Drift in Upper Extremities
Touch Sensation: Unremarkable
Coordination: [id number] Testing Unremarkable
Data Reviewed
-
MRI Head: Report Reviewed and Image Reviewed
Labs: Report Reviewed
Reviewed with: Physician and Patient
Old Records: Summarized
Past History
Past History
ED Past Medical History: COPD and HTN
Social History
Tobacco: Former smoker
Alcohol: Occasional
Personal: Single
Living: with family (The patient lives with her daughter, son-in-law, and their three children.)
Medications
-
Medications:
Generic Name Dose Route Start Last Admin
Trade Name Freq PRN Reason Stop Dose Admin
Acetaminophen 650 mg 03/16/25 15:06
Acetaminophen 650 Mg Rectal Suppository RECTAL 04/13/25 15:05
Q4HPRN PRN
DAUGHERTY, mild pain, or temp >100.4F
Acetaminophen 650 mg 03/16/25 15:06 03/16/25 21:57
Acetaminophen 325 Mg Tablet PO 04/13/25 15:05 650 mg
Q4HPRN PRN Administration
DAUGHERTY, mild pain, or temp >100.4F
Albuterol 2 puff 03/16/25 15:06
Albuterol Hfa [90 Mcg/Dose] Inhaler INH
R Q6HPRN PRN
sob
Protocol
Aspirin 81 mg 03/17/25 08:00 03/17/25 08:55
Aspirin 81 Mg Chewable Tablet PO 04/14/25 07:59 Not Given
DAILY TR
Clopidogrel Bisulfate 75 mg 03/17/25 08:00 03/17/25 08:56
Clopidogrel 75 Mg Tablet PO 04/06/25 08:01 75 mg
DAILY TR Administration
Hydralazine HCl 10 mg 03/16/25 15:06
Hydralazine 20 Mg/Ml Vial IV 04/13/25 15:05
Q4HPRN PRN
SBP > 165, DBP > 110
Lisinopril 10 mg 03/17/25 08:00 03/17/25 08:55
Lisinopril 10 Mg Tablet PO 04/14/25 07:59 Not Given
DAILY TR
Pts Owntiotropium ( 0 unit 03/17/25 08:00 03/17/25 11:14
Spiriva Respimat) 2. INH 04/14/25 07:59 Not Given
5 Mcg Inhaler R DAILY TR
Protocol
Pts Own Symbicort 0 unit 03/17/25 08:00 03/17/25 11:14
Inhaler 160/4.5 2 INH 04/14/25 07:59 Not Given
Puffs Daily R DAILY TR
Protocol
Sodium Chloride 0 flush 03/16/25 16:00
Sodium Chloride 0.9% (Flush) Syringe IV 04/13/25 15:59
PER PROTOCOL TR
--- NOTE | 2025-03-17 14:57 | PTOTSP ---
Pt presents to OT with continued blurred vision, but vision is functional for session. Demonstrates good UB AROM, strength, sensation and coordination; cognition grossly intact; occular mobility grossly intact. Pt is currently at mod I/I level with
basic self care, transfers and functional mobility in room and bathroom without AD. Pt states she has an eye doctor appt on . No additional skilled OT indicated at this time.
[2025-03-17] MEDS: ZESTRIL 10 MG PO (20:05)
[2025-03-18 03:18] VITALS: BP 133/70
[2025-03-18 07:17] VITALS: BP 107/69
[2025-03-18] MEDS: NON-FORMULARY ITEM 2 UNIT INH ×2 (07:53)
[2025-03-18] MEDS: LOW STRENGTH ASPIRIN 81 MG PO (08:47)
[2025-03-18] MEDS: PLAVIX 75 MG PO (08:47)
[2025-03-18] MEDS: ZESTRIL PO (08:48)
[2025-03-18] MEDS: ZESTRIL 10 MG PO (08:50)
--- NOTE | 2025-03-18 09:03 | RESPNOTE ---
patient states good possibility for discharge today, patient's own inhalers returned to patient after administering morning doses.
--- NOTE | 2025-03-18 09:11 | W.PN.HOSP.TC ---
Today's Communication/Plan
-
dc
Assessment / Plan
Assessment / Plan
Physical Exam
General: Well Developed, Well Nourished, No Apparent Distress and Morbidly Obese
HEENT: Normocephalic, Moist mucous membranes and Atraumatic
Respiratory: Clear
Cardiac: S1/S2, + murmur
GI: Soft, Non-Tender, Non-Distended and Normal Bowel Sounds, obese.
Rectal: NO bleeding.
Musculoskeletal: No Clubbing, No Cyanosis
Neuro: AAOX 3, Followed commands, speech is fluent, no pronator drift, no tremor, Nonfocal/grossly intact
Psych: Calm
Acute blurry vision, seems to resolve slowly, will need to f/w OP eye doctor, she has an appointment in 2 days
Dysequilibrium, associated Nausea, seems to resolved, feeling better.
HTN urgency - presumed HTN encephalopathy
MRI studies, no acute finsings
neurology recommended dual anti-plt therapy for 21 days
LDL at 109, d/w pt, recommend to d/w PCP in OP setting
# Heart murmur. echo showed moderate TR, PASP at 40 mmHg and
will f/w PCP
CKD3a - baseline Cr 1.0, eGFR 57
- stable
- observe Cr
- cont ACEI
HX COPD
c/w inhalers.
No wheezes on exam
DVT Px: SCD
Full code
Total discharge time spent to see the patient, examine the patient, review data and lab result, discuss discharge plan with patient, family, neurology, nursing staff around 67 minutes
Anticipated Discharge: Today
Subjective/Interval History
-
Date of Service: March 18, 2025
She feels better, less blurred vision
Walked around with no dizziness
No chest pain or sob
Objective Data
-
Vital Signs:
Vital Signs
Temp Pulse Resp BP Pulse Ox
97.9 F 80 16 107/69 95
03/18/25 07:17 03/18/25 07:17 03/18/25 08:05 03/18/25 07:17 03/18/25 08:05
I&O
03/17/25 03/18/25 03/19/25
06:59 06:59 06:59
Intake Total 1440 / 1440 720 / 720
Balance 1440 / 1440 720 / 720
--- NOTE | 2025-03-18 10:32 | CM ---
Patient for d/c today, initial assessment completed. Patient seen bedside w/ daughter, Marissa. Admitted for Acute blurry vision, Dysequilibrium, associated Nausea.
Patient resides w/ her daughter, Allie, son in law and grandchildren in a 2ST[facility], no steps to enter. Patient is independent in all areas, no DME. No SNF/HC hx reported.
Address, points of contact and insurance verified
PCP: Aayush Hinds
Pharmacy: [facility] [place]
Therapy rec OP therapy, discussed w/ patient who shared she does not need therapy at this time. Patient is due to vacation next week to [place].
IMM verbally reviewed, copy provided, copy on chart
Plan: Home, no needs
--- NOTE | 2025-03-19 12:37 | W.DCSUMMARY ---
Discharge Summary
Discharge Data
Date of Admission: 03/16/25
Date of Discharge: 03/18/25
-
Pending Results: No
Hospital Course
79 years old female presented with blurred vision in both eyes with dizziness. Patient reported feeling dizzy and vertigo with nausea upon trying to focus or read. Family noticed imbalance in her gait also. Patient was evaluated by neurologist.
She did not have active signs of infection. Brain imaging studies including MRI did not show acute findings. She was noticed to have high blood pressure. She was taking lisinopril which was increased from 10 mg daily to 10 mg twice daily.
Blurred vision improved but remained present. Neurologist recommended outpatient ophthalmologic evaluation for possible hypertensive encephalopathy or possibility of retinal ischemic injury. Patient was able to ambulate independently. She denied
further nausea, dizziness or vertigo. She did not have double vision. She remained hemodynamically stable. She was noticed to have heart murmur. Echocardiogram showed normal left ventricular ejection fraction is 55-60%, moderate tricuspid
regurgitation with PASP 40 mmHg. Patient has history of COPD. She reported compliance to her inhalers with no hypoxia. Patient was advised to continue taking her medications and follow-up with primary care doctor. She was advised to continue
dual antiplatelet therapy due to prolonged symptoms she encountered. She was advised to stop Plavix after 21 days, to continue with aspirin with possibility of discontinuation if no symptoms and no recurrence of events. Patient was able to
tolerate diet. Instructions were discussed with patient and her family. She obtained an ophthalmology appointment upon discharge. She was discharged in a stable condition.
Discharge Plan
-
Patient Disposition: Home (Routine Discharge)
Discharge Diagnosis/Procedures: -Blurred vision both eyes with the possibility of retinal ischemic injury bilaterally in the eyes: for outpatient ophthalmologic evaluation.
Due to prolonged symptoms, continue with plan for patient to utilize aspirin and clopidogrel simultaneously, then discontinue clopidogrel after 21 days.
-You lipid panel showed LDL at 109 and low total cholesterol ( 189) and triglyceride ( 73), talk with your primary care doctor if you need to initiate statin therapy.
- Essential hypertension, Increased lisinopril to 10 mg twice a day. Potential side effects of lisinopril and chloride cough, renal insufficiency, hyperkalemia, angioedema. Repeat blood work in 7-10 days, follow with your pCP and monitor blood
pressure.
- Valvular heart disease with moderate tricuspid regurgitation and PASP 40 mmHg(pulmonary hypertension).
Diet: Low Sodium
Blood Work: BMP in 7 - 10 days.
Referrals:
Landon Walls MD [Active, Ophthalmology] - 03/20/25
Aayush Hinds DO [Family Provider, Family Practice] - in one to two weeks
Cameron Turner MD [Active, Neurology] - in one month
Prescriptions:
New
aspirin 81 mg Tablet,Chewable
81 mg PO DAILY Qty: 30 0RF
clopidogrel 75 mg Tablet
75 mg PO DAILY Qty: 30 0RF
Continued
albuterol sulfate 90 mcg/actuation Hfa Aerosol Inhaler
2 puff INHALATION R Q6HPRN PRN (Reason: sob)
cholecalciferol (vitamin D3) [Vitamin D3] 25 mcg (1,000 unit) Tablet
25 mcg PO DAILY
budesonide-formoterol [Symbicort] 160-4.5 mcg/actuation Hfa Aerosol Inhaler
2 puff INHALATION R DAILY
Spiriva Respimat 2.5 mcg/actuation Mist
2 puff INHALATION R DAILY
Changed
lisinopril 20 mg Tablet
10 mg PO BID Qty: 0 0RF
Discontinued
naproxen sodium [Aleve] 220 mg Tablet
440 mg PO DAILYPRN PRN (Reason: mild pain)
Discharge Orders:
Discharge Patient (As Directed); Ordered 03/18/25
Ordered By: Clarke Huynh
Discharge Date and Time
Discharge Date/Time: 03/18/25 10:51
Print Language: PALESTINIAN
== END 2025-03-18 10:51 | disposition home or self-care (01) | DRG 125 ==
LOC: 4 WEST ACU 14:05
PROVIDERS: Emergency Medicine; ADMITTING PHYSICIAN Internal Medicine; ATTENDING PHYSICIAN Internal Medicine; CONSULT PHYSICIAN Psychiatry & Neurology Clinical Neurophysiology; EMERGENCY PHYSICIAN Emergency Medicine; FAMILY PHYSICIAN Student in an Organized Health Care Education/Training Program
DX: H35.82 Retinal ischemia (principal); I27.20 Pulmonary hypertension, unspecified; N18.31 Chronic kidney disease, stage 3a; I12.9 Hypertensive chronic kidney disease with stage 1 through stage 4 chronic kidney disease, or unspecified chronic kidney disease; Z79.899 Other long term (current) drug therapy; Z79.51 Long term (current) use of inhaled steroids; Z87.891 Personal history of nicotine dependence; I16.0 Hypertensive urgency; Z79.82 Long term (current) use of aspirin; J44.9 Chronic obstructive pulmonary disease, unspecified
CPT/HCPCS: 70450; 70544; 70549; 70551; 80048; 80053; 80061; 83036; 84484; 85025; 85610; 92610; 93005; 93306; 96374; 97116; 97166; 99285

== ENCOUNTER → 2025-03-20 10:16 | Outpatient (REF) | payer OTHER, SELFPAY ==
[2025-03-20 12:05] LABS: Blood Urea Nitrogen 35 mg/dl (7-17); Calcium 9.2 mg/dl (8.4-10.2); Carbon Dioxide 22 mmol/L (22-30); Chloride 112 mmol/L (98-107); Glucose 89 mg/dl (70-99); Potassium 5.2 mmol/L (3.5-5.1); Sodium 142 mmol/L (135-145); eGFR 46.05
== END ==
LOC: REG 10:16
PROVIDERS: ATTENDING PHYSICIAN Internal Medicine; FAMILY PHYSICIAN Student in an Organized Health Care Education/Training Program
DX: I10 Essential (primary) hypertension (principal)
CPT/HCPCS: 36415; 80048

== ENCOUNTER → 2025-04-10 08:13 | Outpatient (REF) | payer OTHER, SELFPAY ==
[2025-04-10 10:37] LABS: Blood Urea Nitrogen 21 mg/dl (7-17); Calcium 8.9 mg/dl (8.4-10.2); Carbon Dioxide 25 mmol/L (22-30); Chloride 107 mmol/L (98-107); Glucose 78 mg/dl (70-99); Potassium 4.6 mmol/L (3.5-5.1); Sodium 138 mmol/L (135-145); eGFR 57.31
== END ==
LOC: REG 08:13
PROVIDERS: ATTENDING PHYSICIAN Student in an Organized Health Care Education/Training Program
DX: E87.5 Hyperkalemia (principal)
CPT/HCPCS: 36415; 80048